=== PATIENT | male | born 1965 | race Caucasian/White ===

== ENCOUNTER 2022-04-04 22:12 | Emergency (ER) | payer SELFPAY ==
[2022-04-04] MEDS ORDERED: Sodium Chloride 0.9% 1,000 ML IV ONE (22:25)
[2022-04-04] MEDS ORDERED: Silver Sulfadiazine 1% Crm 400 GM Jar TOP ONE (23:29)
[2022-04-04] MEDS ORDERED: Silver Sulfadiazine 1% Crm 50 GM Tube TOP ONE ×2 (23:38→23:41)
== END 2022-04-04 23:57 | disposition home or self-care (01) ==
LOC: DL.ED 22:12
DX: T22.291A Burn of second degree of multiple sites of right shoulder and upper limb, except wrist and hand, initial encounter (principal); E78.00 Pure hypercholesterolemia, unspecified; Z86.73 Personal history of transient ischemic attack (TIA), and cerebral infarction without residual deficits; Z88.8 Allergy status to other drugs, medicaments and biological substances; Z79.01 Long term (current) use of anticoagulants; Z79.899 Other long term (current) drug therapy; X08.8XXA Exposure to other specified smoke, fire and flames, initial encounter
CPT/HCPCS: 16020; 99283; A9270; J7030